=== PATIENT | male | born 1945 | race Caucasian/White ===

== ENCOUNTER 2017-10-31 10:39 | Emergency (ER) | payer MEDICARE ==
[~2017-10-31] VITALS: Ht 170.2 cm; Wt 88.0 kg
[2017-10-31 10:49] VITALS: BP 150/69
[2017-10-31] MEDS ORDERED: LEVO750T21 PO (11:09)
[2017-10-31] MEDS ORDERED: TETanus/Pertussis (Acell)/Diphther VAC/PF (Tdap-Adult) 0.5ml syringe IM ONE (11:10)
== END 2017-10-31 11:35 | disposition home or self-care (01) ==
LOC: ER 10:40
DX: L03.115 Cellulitis of right lower limb (principal); G62.9 Polyneuropathy, unspecified; Z79.899 Other long term (current) drug therapy
CPT/HCPCS: 90471; 90715; 99283

== ENCOUNTER 2017-11-02 19:11 | Inpatient (IN) | payer MEDICARE ==
[~2017-11-02] VITALS: Ht 170.2 cm; Wt 87.7 kg
[~2017-11-02 19:11] MED LIST: LEVO750T21 PO
[2017-11-02] MEDS ORDERED: morphine 4 MG/ML inj SYRINge IV ONE (21:05)
[2017-11-02] MEDS ORDERED: normal saline 1000ML IV soln IVB ONE (21:05)
[2017-11-02] MEDS ORDERED: ondansetron/PF 4mg/2ml inj IV ONE (21:05)
[2017-11-02] MEDS ORDERED: clindamycin-Cleocin 900mg/D5W 50 ML IV ONE (21:05)
[2017-11-02 21:42] LABS: BASOPHILS % (AUTO) 0.3 % (0-1); EOSINOPHILS # (AUTO) 0.3 X10'3 (0-0.9); EOSINOPHILS % (AUTO) 1.9 % (0-6); HEMATOCRIT 40.9 % (42.0-52.0); HEMOGLOBIN 13.8 g/dl (14.0-17.9); LYMPHOCYTES # (AUTO) 1.9 X10'3 (1.1-4.8); LYMPHOCYTES % (AUTO) 10.5 % (21-51); MEAN CORPUSCULAR HEMOGLOBIN 30.1 PG (27.0-31.0); MEAN CORPUSCULAR HGB CONC 33.8 % (33.0-36.5); MEAN PLATELET VOLUME 8.3 FL (7.4-10.4); MONOCYTES # (AUTO) 1.6 X10'3 (0-0.9); MONOCYTES % (AUTO) 9.1 % (2-12); NEUTROPHILS % (AUTO) 78.2 % (42-75); RED CELL DISTRIBUTION WIDTH 13.5 % (11.5-14.5); WHITE BLOOD COUNT 17.9 X10'3 (4.5-11.0)
[2017-11-02 21:55] LABS: INR 1.1 INR; PARTIAL THROMBOPLASTIN TIME 32 SECONDS (22-32); PROTHROMBIN TIME 11.8 SECONDS (9.0-12.0)
[2017-11-02 21:58] LABS: ALANINE AMINOTRANSFERASE 26 U/L (12-78); ALBUMIN 3.2 G/DL (3.4-5.0); ALBUMIN/GLOBULIN RATIO 0.7 (1.1-1.5); ALKALINE PHOSPHATASE 70 IU/L (46-116); ANION GAP 9 (8-16); ASPARTATE AMINO TRANSFERASE 16 U/L (10-37); BILIRUBIN,TOTAL 1.2 MG/DL (0.1-1.0); BLOOD UREA NITROGEN 12 MG/DL (7-18); BUN/CREATININE RATIO 8.8 (5.4-32.0); CHLORIDE 97 MMOL/L (99-107); CREATININE 1.36 MG/DL (0.60-1.10); GLUCOSE 184 MG/DL (70-104); POTASSIUM 3.7 MMOL/L (3.5-5.1); SODIUM 134 MMOL/L (135-145); TOTAL CARBON DIOXIDE 28.4 MMOL/L (24-32); TOTAL PROTEIN 8.1 G/DL (6.4-8.2); eGFR 52 ML/MIN
[2017-11-02 22:02] LABS: PLATELET COUNT 185 X10'3 (140-440)
[2017-11-02] MEDS ORDERED: METF500T PO (22:26)
[2017-11-02] MEDS ORDERED: normal saline 1000ml 1,000 ML IV SCH (22:49)
[2017-11-02] MEDS ORDERED: ondansetron/PF 4mg/2ml inj IV PRN (22:50)
[2017-11-02] MEDS ORDERED: magnesium hydroxide 30ml (MOM) UD suspension PO PRN (22:50)
[2017-11-02] MEDS ORDERED: mag hydrox/Alum hydrox/simeth 30ml oral suspension PO PRN (22:50)
[2017-11-02] MEDS ORDERED: acetaminophen 325mg tablet PO PRN (22:50)
[2017-11-02] MEDS ORDERED: HYDROmorphone inj. 0.5 MG/0.5 ML DISP.SYRIN IV PRN (22:50)
[2017-11-02] MEDS ORDERED: dextrose 50%-water 50ml dispensing syringe IV PRN ×2 (22:55)
[2017-11-02] MEDS ORDERED: insulin Lispro (HumaLOG) vial - multi-dose SQ SCH (22:55)
[2017-11-02] MEDS ORDERED: MESSAGE TO PHARMACY PO ONE (22:55)
[2017-11-02] MEDS ORDERED: dextrose ORAL solution 15 GM/59 ML bottle PO PRN ×2 (22:55)
[2017-11-02] MEDS ORDERED: glucagon, human recombinant 1mg kit SUBCUT PRN (22:55)
[2017-11-02 23:25] LABS: HEMOGLOBIN A1C 7.4 % (4.5-6.2)
[2017-11-02] MEDS: levoFLOXACIN 750MG TABLET PO SCH (23:39)
[2017-11-03 00:40] VITALS: BP 142/83
[2017-11-03] MEDS: clindamycin 600mg/D5W 50ml 50 ML IV SCH ×4 (01:50→19:38)
[2017-11-03 06:00] VITALS: BP 129/71
[2017-11-03 06:19] LABS: ALANINE AMINOTRANSFERASE 24 U/L (12-78); ALBUMIN 2.6 G/DL (3.4-5.0); ALBUMIN/GLOBULIN RATIO 0.6 (1.1-1.5); ALKALINE PHOSPHATASE 54 IU/L (46-116); ANION GAP 9 (8-16); ASPARTATE AMINO TRANSFERASE 17 U/L (10-37); BILIRUBIN,TOTAL 1.3 MG/DL (0.1-1.0); BLOOD UREA NITROGEN 12 MG/DL (7-18); BUN/CREATININE RATIO 9.6 (5.4-32.0); CALCIUM 7.8 MG/DL (8.5-10.1); CHLORIDE 101 MMOL/L (99-107); CREATININE 1.25 MG/DL (0.60-1.10); GLUCOSE 131 MG/DL (70-104); POTASSIUM 3.5 MMOL/L (3.5-5.1); SODIUM 135 MMOL/L (135-145); TOTAL PROTEIN 6.7 G/DL (6.4-8.2); eGFR 57 ML/MIN
[2017-11-03] MEDS ORDERED: sodium bicarbonate (8.4%) inj. 50 MEQ in normal saline 1000ml 1,000 ML IV SCH (07:50)
[2017-11-03 08:53] LABS: BASOPHILS # (AUTO) 0.1 X10'3 (0-0.2); BASOPHILS % (AUTO) 0.4 % (0-1); EOSINOPHILS # (AUTO) 0.4 X10'3 (0-0.9); EOSINOPHILS % (AUTO) 2.7 % (0-6); HEMATOCRIT 35.5 % (42.0-52.0); HEMOGLOBIN 12.2 g/dl (14.0-17.9); LYMPHOCYTES # (AUTO) 1.6 X10'3 (1.1-4.8); LYMPHOCYTES % (AUTO) 10.6 % (21-51); MEAN CORPUSCULAR HEMOGLOBIN 30.5 PG (27.0-31.0); MEAN CORPUSCULAR HGB CONC 34.5 % (33.0-36.5); MEAN CORPUSCULAR VOLUME 88.6 FL (78-98); MEAN PLATELET VOLUME 7.4 FL (7.4-10.4); MONOCYTES # (AUTO) 1.3 X10'3 (0-0.9); MONOCYTES % (AUTO) 8.2 % (2-12); NEUTROPHILS # (AUTO) 12.1 X10'3 (1.8-7.7); NEUTROPHILS % (AUTO) 78.1 % (42-75); PLATELET COUNT 264 X10'3 (140-440); RED CELL DISTRIBUTION WIDTH 13.1 % (11.5-14.5); WHITE BLOOD COUNT 15.5 X10'3 (4.5-11.0)
[2017-11-03] MEDS: lactobacillus rhamnosus 10,000 MMU CELLS/CAPSULE PO SCH ×2 (09:20→19:38)
[2017-11-03] MEDS: heparin, porcine 5000 units/ml vial SQ SCH ×2 (09:21→19:39)
[2017-11-03 10:00] VITALS: BP 129/71
[2017-11-03 14:15] LABS: ALBUMIN 2.5 G/DL (3.4-5.0); ANION GAP 7 (8-16); BLOOD UREA NITROGEN 14 MG/DL (7-18); BUN/CREATININE RATIO 11.5 (5.4-32.0); CALCIUM 8.3 MG/DL (8.5-10.1); CHLORIDE 100 MMOL/L (99-107); CREATININE 1.22 MG/DL (0.60-1.10); GLUCOSE 192 MG/DL (70-104); SODIUM 135 MMOL/L (135-145); TOTAL CARBON DIOXIDE 27.9 MMOL/L (24-32); eGFR 59 ML/MIN
[2017-11-03] MEDS ORDERED: iohexol 300mg/ml 100ml inj. ONE (14:34)
[2017-11-03] MEDS ORDERED: sodium bicarbonate (8.4%) inj. 50 MEQ in sodium chloride 0.45% 1,000 ML IV ONE (16:40)
[2017-11-03 18:00] VITALS: BP 124/77
[2017-11-03] MEDS: levoFLOXACIN 750MG TABLET PO SCH (20:35)
[2017-11-03] MEDS: insulin glargine (Lantus) pen - multi-dose SQ SCH (20:35)
[2017-11-03 22:00] VITALS: BP 123/72
[2017-11-04] MEDS: clindamycin 600mg/D5W 50ml 50 ML IV SCH ×4 (02:13→21:22)
[2017-11-04] MEDS: HYDROcodone/acetaminophen 10/325mg tab PO PRN ×2 (02:21→21:25)
[2017-11-04 05:50] LABS: ALANINE AMINOTRANSFERASE 25 U/L (12-78); ALBUMIN 2.4 G/DL (3.4-5.0); ALBUMIN/GLOBULIN RATIO 0.6 (1.1-1.5); ALKALINE PHOSPHATASE 56 IU/L (46-116); ANION GAP 9 (8-16); ASPARTATE AMINO TRANSFERASE 17 U/L (10-37); BILIRUBIN,TOTAL 0.9 MG/DL (0.1-1.0); BLOOD UREA NITROGEN 12 MG/DL (7-18); BUN/CREATININE RATIO 9.4 (5.4-32.0); CALCIUM 8.1 MG/DL (8.5-10.1); CHLORIDE 102 MMOL/L (99-107); CREATININE 1.27 MG/DL (0.60-1.10); GLUCOSE 125 MG/DL (70-104); POTASSIUM 3.6 MMOL/L (3.5-5.1); SODIUM 136 MMOL/L (135-145); TOTAL CARBON DIOXIDE 24.9 MMOL/L (24-32); TOTAL PROTEIN 6.4 G/DL (6.4-8.2); eGFR 56 ML/MIN
[2017-11-04 06:00] VITALS: BP 128/78
[2017-11-04] MEDS: lactobacillus rhamnosus 10,000 MMU CELLS/CAPSULE PO SCH ×2 (08:39→21:22)
[2017-11-04] MEDS: normal saline 1000ml 1,000 ML IV SCH (08:39)
[2017-11-04] MEDS: heparin, porcine 5000 units/ml vial SQ SCH ×2 (08:40→21:22)
[2017-11-04 08:46] LABS: HEMOGLOBIN 12.2 g/dl (14.0-17.9); MEAN CORPUSCULAR HEMOGLOBIN 30.4 PG (27.0-31.0); MEAN CORPUSCULAR VOLUME 89.2 FL (78-98); MEAN PLATELET VOLUME 7.2 FL (7.4-10.4); PLATELET COUNT 258 X10'3 (140-440); RED BLOOD COUNT 4.03 X10'6 (4.70-6.10); RED CELL DISTRIBUTION WIDTH 13.3 % (11.5-14.5); WHITE BLOOD COUNT 12.9 X10'3 (4.5-11.0)
[2017-11-04 08:49] LABS: BASOPHILS % (AUTO) 0 % (0-1); EOSINOPHILS % (AUTO) 3.1 % (0-6); LYMPHOCYTES % (AUTO) 18 % (21-51); MONOCYTES % (AUTO) 8.5 % (2-12); NEUTROPHILS % (AUTO) 70.4 % (42-75)
[2017-11-04 08:50] LABS: NEUTROPHILS # (AUTO) 9.1 X10'3 (1.8-7.7)
[2017-11-04 08:51] LABS: EOSINOPHILS # (AUTO) 0.5 X10'3 (0-0.9); LYMPHOCYTES # (AUTO) 3.1 X10'3 (1.1-4.8); MONOCYTES # (AUTO) 1.4 X10'3 (0-0.9)
[2017-11-04 10:30] VITALS: BP 132/75
[2017-11-04 18:00] VITALS: BP 127/81
[2017-11-04] MEDS: insulin glargine (Lantus) pen - multi-dose SQ SCH (21:00)
[2017-11-04] MEDS: levoFLOXACIN 750MG TABLET PO SCH (21:22)
[2017-11-04 22:00] VITALS: BP 125/67
[2017-11-05] MEDS: clindamycin 600mg/D5W 50ml 50 ML IV SCH ×2 (04:39→07:51)
[2017-11-05] MEDS: normal saline 1000ml 1,000 ML IV SCH (04:39)
[2017-11-05 05:44] LABS: ALANINE AMINOTRANSFERASE 26 U/L (12-78); ALBUMIN 2.4 G/DL (3.4-5.0); ALBUMIN/GLOBULIN RATIO 0.6 (1.1-1.5); ALKALINE PHOSPHATASE 60 IU/L (46-116); ANION GAP 7 (8-16); ASPARTATE AMINO TRANSFERASE 15 U/L (10-37); BILIRUBIN,TOTAL 0.7 MG/DL (0.1-1.0); BLOOD UREA NITROGEN 13 MG/DL (7-18); BUN/CREATININE RATIO 9.6 (5.4-32.0); CALCIUM 8.4 MG/DL (8.5-10.1); CHLORIDE 103 MMOL/L (99-107); CREATININE 1.35 MG/DL (0.60-1.10); GLUCOSE 110 MG/DL (70-104); POTASSIUM 3.9 MMOL/L (3.5-5.1); SODIUM 138 MMOL/L (135-145); TOTAL CARBON DIOXIDE 27.6 MMOL/L (24-32); TOTAL PROTEIN 6.5 G/DL (6.4-8.2); eGFR 52 ML/MIN
[2017-11-05 06:00] VITALS: BP 132/77
[2017-11-05] MEDS: lactobacillus rhamnosus 10,000 MMU CELLS/CAPSULE PO SCH ×2 (07:50→20:47)
[2017-11-05] MEDS: heparin, porcine 5000 units/ml vial SQ SCH ×2 (07:50→20:50)
[2017-11-05 08:18] LABS: BASOPHILS # (AUTO) 0.1 X10'3 (0-0.2); BASOPHILS % (AUTO) 0.4 % (0-1); EOSINOPHILS # (AUTO) 0.5 X10'3 (0-0.9); HEMATOCRIT 37.7 % (42.0-52.0); HEMOGLOBIN 12.8 g/dl (14.0-17.9); LYMPHOCYTES # (AUTO) 2.6 X10'3 (1.1-4.8); LYMPHOCYTES % (AUTO) 19.4 % (21-51); MEAN CORPUSCULAR HEMOGLOBIN 30.4 PG (27.0-31.0); MEAN CORPUSCULAR VOLUME 89.5 FL (78-98); MONOCYTES % (AUTO) 7.6 % (2-12); NEUTROPHILS # (AUTO) 9.2 X10'3 (1.8-7.7); NEUTROPHILS % (AUTO) 68.6 % (42-75); RED BLOOD COUNT 4.21 X10'6 (4.70-6.10); RED CELL DISTRIBUTION WIDTH 13.2 % (11.5-14.5); WHITE BLOOD COUNT 13.4 X10'3 (4.5-11.0)
[2017-11-05 09:24] LABS: MEAN PLATELET VOLUME 7.1 FL (7.4-10.4); PLATELET COUNT 297 X10'3 (140-440)
[2017-11-05 09:56] VITALS: BP 140/80
[2017-11-05] MEDS: CefTRIAXone 2gm/D5W 50ml 50 ML IV SCH (13:12)
[2017-11-05] MEDS: metroNIDAZOLE 500mg tablet PO SCH ×2 (13:12→20:47)
[2017-11-05 18:00] VITALS: BP 122/60
[2017-11-05] MEDS: insulin glargine (Lantus) pen - multi-dose SQ SCH (21:00)
[2017-11-05] MEDS: HYDROcodone/acetaminophen 10/325mg tab PO PRN (21:03)
[2017-11-05 22:00] VITALS: BP 121/66
[2017-11-06] MEDS: normal saline 1000ml 1,000 ML IV SCH ×2 (00:08→17:50)
[2017-11-06 06:00] VITALS: BP 136/71
[2017-11-06 06:48] LABS: BASOPHILS % (AUTO) 0.3 % (0-1); EOSINOPHILS # (AUTO) 0.5 X10'3 (0-0.9); EOSINOPHILS % (AUTO) 4.5 % (0-6); HEMATOCRIT 35.3 % (42.0-52.0); LYMPHOCYTES # (AUTO) 2.6 X10'3 (1.1-4.8); LYMPHOCYTES % (AUTO) 21.5 % (21-51); MEAN CORPUSCULAR HEMOGLOBIN 30.3 PG (27.0-31.0); MEAN CORPUSCULAR VOLUME 89.1 FL (78-98); MONOCYTES # (AUTO) 1.1 X10'3 (0-0.9); MONOCYTES % (AUTO) 9.2 % (2-12); NEUTROPHILS # (AUTO) 7.7 X10'3 (1.8-7.7); NEUTROPHILS % (AUTO) 64.5 % (42-75); RED BLOOD COUNT 3.96 X10'6 (4.70-6.10); RED CELL DISTRIBUTION WIDTH 13.5 % (11.5-14.5)
[2017-11-06 06:55] LABS: MEAN PLATELET VOLUME 7.3 FL (7.4-10.4); PLATELET COUNT 297 X10'3 (140-440); WHITE BLOOD COUNT 10.1 X10'3 (4.5-11.0)
[2017-11-06 07:10] LABS: ALANINE AMINOTRANSFERASE 22 U/L (12-78); ALBUMIN 2.4 G/DL (3.4-5.0); ALBUMIN/GLOBULIN RATIO 0.6 (1.1-1.5); ALKALINE PHOSPHATASE 57 IU/L (46-116); ANION GAP 8 (8-16); ASPARTATE AMINO TRANSFERASE 21 U/L (10-37); BILIRUBIN,TOTAL 0.5 MG/DL (0.1-1.0); BLOOD UREA NITROGEN 12 MG/DL (7-18); BUN/CREATININE RATIO 9.1 (5.4-32.0); CALCIUM 8.1 MG/DL (8.5-10.1); CHLORIDE 105 MMOL/L (99-107); CREATININE 1.32 MG/DL (0.60-1.10); GLUCOSE 115 MG/DL (70-104); POTASSIUM 3.7 MMOL/L (3.5-5.1); SODIUM 138 MMOL/L (135-145); TOTAL CARBON DIOXIDE 24.6 MMOL/L (24-32); TOTAL PROTEIN 6.5 G/DL (6.4-8.2); eGFR 54 ML/MIN
[2017-11-06] MEDS: heparin, porcine 5000 units/ml vial SQ SCH ×2 (07:24→20:47)
[2017-11-06] MEDS: CefTRIAXone 2gm/D5W 50ml 50 ML IV SCH (07:24)
[2017-11-06] MEDS: metroNIDAZOLE 500mg tablet PO SCH ×3 (07:25→20:46)
[2017-11-06] MEDS: lactobacillus rhamnosus 10,000 MMU CELLS/CAPSULE PO SCH ×2 (07:25→20:46)
[2017-11-06 12:00] VITALS: BP 129/71
[2017-11-06] MEDS ORDERED: gadopentetate dimeglumine 7.5 MMOL/15 ML syringe ONE (15:31)
[2017-11-06] MEDS: vancomycin inj 1,250 MG in normal saline 250ml IV soln 250 ML IV SCH (15:32)
[2017-11-06 18:00] VITALS: BP 134/69
[2017-11-06] MEDS: insulin glargine (Lantus) pen - multi-dose SQ SCH (20:54)
[2017-11-06 22:00] VITALS: BP 139/69
[2017-11-07] MEDS: vancomycin inj 1,250 MG in normal saline 250ml IV soln 250 ML IV SCH ×2 (01:56→14:00)
[2017-11-07] MEDS: normal saline 1000ml 1,000 ML IV SCH ×2 (02:01→10:34)
[2017-11-07] MEDS: HYDROcodone/acetaminophen 10/325mg tab PO PRN (03:55)
[2017-11-07 06:16] LABS: HEMATOCRIT 36.6 % (42.0-52.0); HEMOGLOBIN 12.5 g/dl (14.0-17.9); MEAN CORPUSCULAR HEMOGLOBIN 30.1 PG (27.0-31.0); MEAN CORPUSCULAR HGB CONC 34.1 % (33.0-36.5); MEAN CORPUSCULAR VOLUME 88.4 FL (78-98); RED BLOOD COUNT 4.14 X10'6 (4.70-6.10); RED CELL DISTRIBUTION WIDTH 13.6 % (11.5-14.5)
[2017-11-07 06:20] LABS: ALANINE AMINOTRANSFERASE 23 U/L (12-78); ALBUMIN 2.5 G/DL (3.4-5.0); ALBUMIN/GLOBULIN RATIO 0.6 (1.1-1.5); ALKALINE PHOSPHATASE 59 IU/L (46-116); ANION GAP 10 (8-16); ASPARTATE AMINO TRANSFERASE 22 U/L (10-37); BILIRUBIN,TOTAL 0.5 MG/DL (0.1-1.0); BLOOD UREA NITROGEN 11 MG/DL (7-18); BUN/CREATININE RATIO 8.9 (5.4-32.0); CALCIUM 8.3 MG/DL (8.5-10.1); CHLORIDE 105 MMOL/L (99-107); CREATININE 1.24 MG/DL (0.60-1.10); GLUCOSE 125 MG/DL (70-104); SODIUM 140 MMOL/L (135-145); TOTAL CARBON DIOXIDE 24.9 MMOL/L (24-32); TOTAL PROTEIN 6.6 G/DL (6.4-8.2); eGFR 58 ML/MIN
[2017-11-07 06:39] VITALS: BP 128/68
[2017-11-07 06:40] LABS: MEAN PLATELET VOLUME 6.9 FL (7.4-10.4); PLATELET COUNT 335 X10'3 (140-440)
[2017-11-07 06:46] LABS: PLATELET ESTIMATE NORMAL; POLYCHROMASIA 1+; ROULEAUX 1+; TOTAL CELLS COUNTED 100
[2017-11-07 06:47] LABS: TOXIC GRANULATION 1+
[2017-11-07] MEDS: CefTRIAXone 2gm/D5W 50ml 50 ML IV SCH (07:15)
[2017-11-07] MEDS: lactobacillus rhamnosus 10,000 MMU CELLS/CAPSULE PO SCH (07:15)
[2017-11-07] MEDS: heparin, porcine 5000 units/ml vial SQ SCH (07:15)
[2017-11-07] MEDS: metroNIDAZOLE 500mg tablet PO SCH ×2 (07:16→13:04)
[2017-11-07 10:23] VITALS: BP 115/55
[2017-11-07] MEDS ORDERED: CLIN300C85 PO (12:04)
[2017-11-08] MEDS ORDERED: VANCOMYCIN LEVEL IV ONE (01:30)
== END 2017-11-07 14:25 | disposition home or self-care (01) | DRG 872 ==
LOC: ER 19:12 → ED HOLD 22:49 → ORTHO 4S 11-03 00:40
PROVIDERS: ADMIT Internal Medicine; ATTEND Family Medicine
PROC: B42F1ZZ Computerized Tomography (CT Scan) of Right Lower Extremity Arteries using Low Osmolar Contrast (ICD-10-PCS; 2017-11-03)
PROC: 0H9MXZZ Drainage of Right Foot Skin, External Approach (ICD-10-PCS; principal; 2017-11-05)
DX: A41.9 Sepsis, unspecified organism (principal); M86.8X7 Other osteomyelitis, ankle and foot; L03.115 Cellulitis of right lower limb; L03.116 Cellulitis of left lower limb; L02.611 Cutaneous abscess of right foot; N17.9 Acute kidney failure, unspecified; E11.69 Type 2 diabetes mellitus with other specified complication; E11.621 Type 2 diabetes mellitus with foot ulcer; E11.42 Type 2 diabetes mellitus with diabetic polyneuropathy; L84 Corns and callosities; T63.2X1A Toxic effect of venom of scorpion, accidental (unintentional), initial encounter; E11.65 Type 2 diabetes mellitus with hyperglycemia; E11.628 Type 2 diabetes mellitus with other skin complications; N18.9 Chronic kidney disease, unspecified; E11.22 Type 2 diabetes mellitus with diabetic chronic kidney disease; L97.529 Non-pressure chronic ulcer of other part of left foot with unspecified severity; B95.61 Methicillin susceptible Staphylococcus aureus infection as the cause of diseases classified elsewhere; Z90.49 Acquired absence of other specified parts of digestive tract; Z79.2 Long term (current) use of antibiotics; Z79.84 Long term (current) use of oral hypoglycemic drugs; Y92.89 Other specified places as the place of occurrence of the external cause; Y99.8 Other external cause status; Y93.89 Activity, other specified
CPT/HCPCS: 36415; 71045; 73630; 73701; 73720; 80048; 80053; 82948; 83036; 83605; 85025; 85610; 85730; 87040; 87070; 87075; 87077; 87186; 93005; 96365; 96375; 99285; A4414; A6446; A6449; A9579; J0696; J1644; J1815; J2270; J2405; J3370; J3490; J7030; Q9967